=== PATIENT | male | born 1965 | race Caucasian/White ===

== ENCOUNTER 2022-11-18 17:38 | Emergency (ER) | payer OTHER, BC, SELFPAY ==
--- NOTE | ~2022-11-18 | XR_ITS ---
EXAM: XR elbow RT min 3V DATE: 11/18/2022 18:30 HISTORY: Fell today at work. Pain . COMPARISON: None available. FINDINGS: Normal mineralization. No fracture or dislocation. No lytic or blastic lesion. Mild degene rative change and enthesopathy at the elbow joint. No erosion or periosteal change. Soft tissues with in normal limits. Large volume elbow joint effusion. IMPRESSION: Large right elbow joint effusion which can accompany occult radial head fractures. Reviewed, dictated and finalized at location K. SEWER
--- NOTE | ~2022-11-18 | XR_ITS ---
EXAM: XR wrist RT min 3V DATE: 11/18/2022 18:31 HISTORY: Fell at work today. Pain . COMPARISON: None available. FINDINGS: Normal mineralization. No fracture or dislocation. No lytic or blastic lesion. Fusion of t he lunate and triquetral bones. Mild scattered degenerative changes Joint spaces are maintained. No e rosion or periosteal change. Soft tissues within normal limits. IMPRESSION: No acute osseous finding in the right wrist. Reviewed, dictated and finalized at location K. [employer]
[2022-11-18 17:54] VITALS: BP 147/79; PULSE 72; RESP 16; TEMP 36.3; O2SAT 98
--- NOTE | 2022-11-18 18:16 | ED.UPPEXIN ---
HPI - Extremity Injury (Upper) General Chief Complaint: Extremity Injury, Upper Stated Complaint: Rt Arm Pain Due to Fall Time Seen by Provider: 11/18/22 18:08 Source: patient Mode of arrival: ambulatory Limitations: no limitations History of Present Illness HPI narrative: Patient presents today complaining of pain to his right elbow radiating to the right wrist. 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 Denies loss of consciousness. Reports ongoing pain in the arm. Pain is absent at rest, but increases to 7/10 with any movement. Denies numbness or tingling in the arm or hand. He has tried no [id number] treatment prior to arrival. Related Data Home Medications Medication Instructions Recorded Confirmed [id number] acid 300 1 tablet PO DAILY 02/11/22 11/18/22 mcg-lycopene 600 mcg-lutein 300 mcg tablet (Centrum Silver Ultra Men's) Allergies Allergy/AdvReac Type Severity Reaction Status Date / Time No Known Allergies Allergy Verified 11/18/22 17:50 Review of Systems Review of Systems: CONSTITUTIONAL: Denies body aches, fever, chills, or sweats. EYES: Denies visual changes, redness, or discharge. ENT: Denies rhinorrhea, congestion, sore throat, or otalgia. CARDIOVASCULAR: Denies chest pain, palpitations, or edema. RESPIRATORY: Denies cough or dyspnea. GASTROINTESTINAL: Denies abdominal pain, nausea, vomiting, or diarrhea. GENITOURINARY: Denies dysuria or hematuria. SKIN: Denies rash, itching, or wounds. MUSCULOSKELETAL: Denies back pain, or myalgia.+ right elbow and wrist pain NEUROLOGIC: Denies headache, numbness, tingling, or weakness. PSYCH: Denies depression or anxiety. [facility] Past Medical History Medical History Skin cancer Family History Family History Father Lymphoma Social History Social History Smoking status: Unknown if ever smoked Second hand tobacco smoke exposure: No Alcohol intake: current Drinks per week: 3 Substance use: never Substance use type: does not use Lack of Transportation: No Lack of Food: Never True Current Housing: I Have Housing Concerned About Future Housing: No Difficulty Paying Gas/Electric Bills: No Difficulty Paying for Meds: No Currently Unemployed: No Education: Bachelor's Degree Difficulty w/ Childcare or Family Care: No Comments At time of signature, I have reviewed and agree with nursing past medical, surgical, social and family history unless otherwise noted. Please see nursing chart for further information. There is no relevant family history pertinent to the presenting complaint Exam Narrative: GENERAL: Well-appearing, well-nourished, and in no acute distress. HEAD: Normocephalic, atraumatic. Mild tenderness to the right upper cheek without edema or ecchymosis. No deformity noted to the cheek. Patient denies any pulling with movement of the eyes. EYES: EOMI. PERRL. No redness or drainage. Conjunctivae normal. ENT: Mucous membranes pink and moist. NECK: Normal AROM. Supple. No lymphadenopathy. Neck is nontender. CHEST: No respiratory distress. MUSCULOSKELETAL: No bony tenderness. EXTREMITIES: Right elbow: Soft tissue tenderness laterally. No bony tenderness, but patient localizes tenderness to the posterior elbow with flexion, extension, pronation, and supination. No edema or ecchymosis noted. No tenderness with form. No tenderness of the wrist. Patient localizes pain about the wrist with AROM. Distal sensation intact. Capillary refill normal. Radial pulse normal. SKIN: Warm, dry, no rash. Capillary refill normal. Normal skin turgor. NEURO: No focal deficits. Alert and oriented x3. Gait steady. PSYCH: Elizabeth
== END 2022-11-18 19:00 | disposition home or self-care (01) ==
PROVIDERS: Emergency Provider Nurse Practitioner
DX: M25.421 Effusion, right elbow (principal); M25.531 Pain in right wrist; W01.0XXA Fall on same level from slipping, tripping and stumbling without subsequent striking against object, initial encounter; Y99.0 Civilian activity done for income or pay; Z85.828 Personal history of other malignant neoplasm of skin
CPT/HCPCS: 73080; 73110; 99214; A4565; G0463

== ENCOUNTER 2022-12-13 13:20 | Outpatient (CLI) | payer BC, SELFPAY | END 2022-12-13 13:21 | disposition home or self-care (01) | LOC: ANHAUDIO 13:21 | PROVIDERS: Visit Provider Otolaryngology | DX: H93.12 Tinnitus, left ear (principal); H90.3 Sensorineural hearing loss, bilateral | CPT/HCPCS: 92557; 92567 ==

== ENCOUNTER → 2023-03-04 13:34 | Outpatient (CLI) | payer BC, SELFPAY | PROVIDERS: PCP Nurse Practitioner; Visit Provider Orthopaedic Surgery | DX: M25.561 Pain in right knee (principal) | CPT/HCPCS: 73562 ==